=== PATIENT | female | born 1955 | race Hispanic/Latino ===

== ENCOUNTER 2018-11-02 13:01 | Inpatient (IN) | payer MEDICARE, BC ==
--- NOTE | 2018-11-02 13:32 | ED PDOC ---
Arrival/HPI - General Chief Complaint: Chest Pain Time Seen by Provider: 11/02/18 13:05 Historian: Patient - History of Present Illness Narrative History of Present Illness (Text): 11/02/18 13:30 A 63 year old female, whose past medical history includes Crohn's disease, presents to the emergency department complaining of chest heaviness and some shortness of breath for 10 days. States symptoms came suddenly and have been intermittent since 10 days ago. Patient reports describes chest heaviness as someone sitting on her chest, causing her to be unable to get in full breath. Mentions symptoms worse after eating. Patient went to see Dr. Piper for stress test this morning, and afterwards while on her way home, became suddenly lightheaded/dizzy, and decided to come to the ER for evaluation. Patient denies any other complaints at this time. Also, patient mentions having multiple abdominal surgeries in the past. Drinks 2 shots vodkas a day. Return To Factory Clerk: Dr. Piper Past Medical History - Provider Review Nursing Documentation Reviewed: Yes - Cardiac Hx Pacemaker: No - Neurological Hx Paralysis: No - Hematological/Oncological Hx Blood Transfusions: No Hx Blood Transfusion Reaction: No - Musculoskeletal/Rheumatological Hx Musculoskeletal Disorders: No - Gastrointestinal Hx Crohn's Disease: Yes - Psychiatric Hx Emotional Abuse: No Hx Physical Abuse: No Hx Substance Use: No - Anesthesia Hx Anesthesia: Yes Hx Anesthesia Reactions: No Hx Malignant Hyperthermia: No - Suicidal Assessment Feels Threatened In Home Enviroment: No Family/Social History - Physician Review Nursing Documentation Reviewed: Yes Family/Social History: No Known Family HX Smoking Status: Never Smoked Hx Alcohol Use: Yes (SOCIAL) Frequency of alcohol use: Daily Hx Substance Use: No Allergies/Home Meds Allergies/Adverse Reactions: Allergies No Known Allergies Allergy (Verified 07/16/12 12:56) Home Medications: Home Meds Medication Instructions Recorded Confirmed Bifidobacterium Infantis [Align] 4 mg PO DAILY 07/16/12 06/15/14 Dexlansoprazole [Dexilant] 60 mg PO DAILY 07/16/12 06/15/14 Mercaptopurine [6-Mp] 50 mg PO DAILY 07/16/12 06/15/14 Linaclotide [Linzess] 290 mcg PO DAILY 05/25/14 06/15/14 Vitamin A 10,000 iu PO DAILY 06/15/14 06/15/14 Review of Systems - Physician Review All systems were reviewed & negative as marked: Yes - Review of Systems Constitutional: absent: Fevers Respiratory: SOB (some) Cardiovascular: Other (chest heaviness) Neurological: Dizziness (and lightheadedness) Physical Exam - Physical Exam Narrative Physical Exam (Text): Gen: VS reviewed, alert, well developed, well nourished, nontoxic, mild distress. ENT: normal pharynx. Eye: EOMI, PERRL. Neck: no JVD, supple, no adenopathy. CV: regular rate, regular rhythm, no rubs, no murmur, no gallops, S1, S2, pulses equal and strong. Pulm: no distress, clear to auscultation, no wheeze, no rhonchi, breath sounds equal, no rales. Abd: soft, nontender, no guarding, no rebound, no rigidity, normal bowel sounds. Ext: no edema. Skin: good color, no rash, no cyanosis. Psych: responds appropriately to questions, normal affect. Neuro: oriented x 3, CN2-12 intact grossly, motor intact, sensation intact. Medical Decision Making ED Course and Treatment: 11/02/18 13:31 Impression: 63 year old female with chest heaviness and some shortness of breath. Plan: -- Angio Chest CT -- Labs -- Reassess and disposition Progress Notes: 11/02/18 13:07 EKG: Ordered, reviewed, and independently interpreted the EKG. Rate : 60 BPM Rhythm : NSR Interpretation : Normal QRS, normal access, non-specific ST- and T-wave abno rmalities. Comparison : No previous EKG for comparison. 11/02/18 16:[address] molina. patient was seen for recurrent chest pain, planned cardiac cath tomorrow. case was discussed with dr. piper who had seen the patient in the emergency department . - Scribe Statement The provider has reviewed the documentation as recorded by the Diamond Jean Provider Scribe Attestation: All medical record entries made by the Scribblanche were at my direction and personally dictated by me. I have reviewed the chart and agree that the record accurately reflects my personal performance of the history, physical exam, medical decision making, and the department course for this patient. I have also personally directed, reviewed, and agree with the discharge instructions and disposition. Disposition/Present on Arrival - Present on Arrival Any Indicators Present on Arrival: No History of DVT/PE: No History of Uncontrolled Diabetes: No Urinary Catheter: No History of Decub. Ulcer: No History Surgical Site Infection Following: None - Disposition Have Diagnosis and Disposition been Completed?: Yes Diagnosis: Angina at rest Disposition: HOSPITALIZED Disposition Time: 16:54 Patient Plan: Admission Condition: STABLE Discharge Instructions (ExitCare): Chest Pain (ED) Forms: [employer] (Romanian)
[2018-11-02 14:24] LABS: ALB/GLOB RATIO 1.3 (1.1-1.8); ALBUMIN 4.2 g/dL (3.0-4.8); ALT/SGPT 27 U/L (7-56); AST/SGOT 25 U/L (14-36); BASO # 0.02 K/mm3 (0.0-2.0); BASO % 0.3 % (0.0-3.0); BLOOD UREA NITROGEN 13 mg/dL (7-21); CALCIUM 9.5 mg/dL (8.4-10.5); EOS # 0.1 (0.0-0.7); EOS % 1.6 % (1.5-5.0); GFR NON-AFRICAN AMERICAN > 60; GRAN # 3.66 (1.4-6.5); GRAN % 59.8 % (50.0-68.0); HEMOGLOBIN 13.3 g/dL (12.0-16.0); LIPASE 90 U/L (23-300); LYMPH # 1.7 (1.2-3.4); MEAN CELL VOLUME 89.9 fl (80.0-105.0); MEAN CORPUSCULAR HEMOGLOBIN 30.4 pg (25.0-35.0); MEAN CORPUSCULAR HGB CONC 33.8 g/dl (31.0-37.0); MEAN PLATELET VOLUME 10.4 fl (7.0-11.0); MONO # 0.7 (0.1-0.6); MONO % 11.3 % (1.0-6.0); RBC 4.37 10^6/uL (3.5-6.1); RED CELL DISTRIBUTION WIDTH 13.3 % (11.5-14.5); WHITE BLOOD COUNT 6.1 10^3/uL (4.5-11.0)
[2018-11-02 14:34] LABS: INR 1.02; PARTIAL THROMBOPLASTIN TIME 31.9 Seconds (26.9-38.3); PROTHROMBIN TIME 11.3 SECONDS (9.4-12.5)
[2018-11-02 14:36] LABS: TROPONIN I < 0.01 ng/mL
--- NOTE | 2018-11-02 20:15 | CARD ---
APPROVED REPORT Date of service: 11/02/2018 EKG Measurement Heart [id number] <Conclusion> Sinus rhythm with premature atrial complexes Otherwise normal ECG
--- NOTE | 2018-11-02 21:16 | HP ---
DATE OF EXAM: 11/02/2018 HISTORY OF PRESENT ILLNESS: I was called by Dr. Ilir Piper to place this young lady on my service. She is going to go for cardiac cath tomorrow morning. She is a 63-year-old white female who presents with complaining of chest heaviness, shortness of breath for 10 days suddenly came on intermittent on and off, not doing well, feels like somebody is sitting on her chest causing her unable to get a full deep breath. She went to Dr. Piper for stress test this morning, who also became suddenly lightheaded and dizzy, came to the emergency room again and Dr. Piper was going to do a cath tomorrow. She is a 63-year-old white female with past medical history of Crohn disease, now with chest pain, discomfort, pressure. FAMILY HISTORY: No known family history. SOCIAL HISTORY: Never smoked. She drinks two shots daily socially. No substance abuse. ALLERGIES: NO KNOWN DRUG ALLERGIES. MEDICATIONS: She is on align, Dexilant, mercaptopurine, Linzess, and vitamin A. She is going to go for cath early in the morning so hold off on the medications right now. REVIEW OF SYSTEMS: No acute vision or hearing loss. No sore throat. There is chest pain, there is chest heaviness. No shortness of breath or cough. No abdominal pain or nausea, vomiting, constipation, diarrhea. There is dizziness and lightheadedness just not feeling the same. PHYSICAL EXAMINATION: VITAL SIGNS: She has 98.2 temperature, 101/67 blood pressure, 18 respiratory rate, and 100% O2 sats on room air. GENERAL: She is a well developed, comfortable at this time, nontoxic, mild distress. HEENT: Extraocular muscles are intact. Pupils equal and reactive to light. Throat is moist. NECK: Supple. No JVD. No adenopathy. HEART: Regular rate. Normal S1 and S2. LUNGS: Decreased breath sounds. Clear to auscultation. No wheezes, rhonchi, or rales. ABDOMEN: Soft and nontender. Positive bowel sounds. No guarding, rebound or CVA tenderness. EXTREMITIES: No edema. SKIN: Good color. No apparent rashes or ulcers. NEUROLOGIC: Alert and oriented x3. Appropriate affect. Normal mood. Cranial nerves II through XII grossly intact. She can move all four extremities well. LYMPH: Thyroid midline. No palpable appreciable lymphadenopathy. LABORATORY DATA: She had a bunch of tests done. She has a 6.1 white count, 13.3 hemoglobin, 39.3 hematocrit with 301 platelets. She has a 1.02 INR. She has sodium 135, potassium 4.1, BUN 30, creatinine 0.7, GFR is greater than 60, sugar is 99, calcium 9.5, and total bili is 0.3. AST is 25, ALT is 27, alk phos 55. Troponin I is less than 0.01. Total protein 7.5, albumin is 4.2, lipase is 90. Alcohol is less than 10. IMPRESSION AND PLAN: There is an EKG done which showed sinus rhythm. She is going to be seen by Dr. Piper tomorrow for cardiac catheterization. We will restart her medications after the cardiac cath as per Dr. Piper. The patient understands that, she is here for chest pain. She is dictated an catheter male. Lucas Weiss DO MTDD
[2018-11-03 06:09] VITALS: O2SAT 96
[2018-11-03 07:18] LABS: HEMOGLOBIN 14.1 g/dL (12.0-16.0); MEAN CELL VOLUME 90.8 fl (80.0-105.0); MEAN CORPUSCULAR HEMOGLOBIN 30.3 pg (25.0-35.0); MEAN CORPUSCULAR HGB CONC 33.4 g/dl (31.0-37.0); MEAN PLATELET VOLUME 10.2 fl (7.0-11.0); RBC 4.65 10^6/uL (3.5-6.1); RED CELL DISTRIBUTION WIDTH 13.6 % (11.5-14.5); WHITE BLOOD COUNT 4.6 10^3/uL (4.5-11.0)
[2018-11-03 07:19] LABS: ALB/GLOB RATIO 1.3 (1.1-1.8); ALT/SGPT 25 U/L (7-56); AST/SGOT 23 U/L (14-36); BLOOD UREA NITROGEN 16 mg/dL (7-21); CALCIUM 9.4 mg/dL (8.4-10.5); GFR NON-AFRICAN AMERICAN > 60
[2018-11-03] MEDS ORDERED: Iodixanol 320 MG/ML 200 ML BOTTLE IV ONE (08:53)
[2018-11-03] MEDS ORDERED: Lidocaine 2% Inj (20ml) ONE (08:53)
[2018-11-03] MEDS ORDERED: Midazolam 2 MG/2 ML VIAL ONE ×2 (08:54→09:05)
[2018-11-03] MEDS ORDERED: Sodium Chloride 0.9% 1,000 ML IV SCH (09:45)
--- NOTE | 2018-11-03 10:59 | CARDCATH ---
PROCEDURE DATE: 11/03/2018 HISTORY: The patient is a 63-year-old woman who presents with recurrence of angina including progressive angina at rest. This was associated with shortness of breath and marked fatigue. The patient's past medical history includes questionable hypercholesterolemia. There is a family history of CAD. Because of this, the patient was admitted through the emergency room to rule out acute coronary syndrome. Because of her ongoing symptoms, cardiac catheterization was recommended. PROCEDURE: Left heart catheterization with coronary arteriography, left ventriculogram, supra-aortic valvular injection were performed. The right femoral artery was cannulated with 6-Malaysian sheath. There were no complications. I performed moderate sedation which included the presence of an independent trained observer that assisted in monitoring the patient's level of consciousness and physiologic status. After administration of Versed and fentanyl, my intra-service time was 15 minutes. Findings on catheterization included a left ventriculogram which revealed a borderline dilated LV with good LV systolic function. Estimated ejection fraction is 50% to 55%. Supra-aortic valvular injection revealed no aortic insufficiency. Her coronary anatomy revealed a right dominant circulation. The RCA revealed mild intimal irregularities without critical lesions. The left main artery was unremarkable. The LAD and diagonal vessels revealed mild intimal irregularities without critical lesions. The circumflex artery and obtuse marginal branches were free of significant disease. Angio-Seal was used to close the femoral artery site. The patient tolerated the procedure well. In summary, the procedure revealed no critical lesions with mild intimal irregularities in the coronary tree. LV function is borderline dilated with good LV function. No aortic insufficiency. Given these findings, her symptoms cannot be explained by her findings on cardiac catheterization. Given these findings, the patient can be discharged today. We will [place] the patient [place] workup of a noncardiac cause of her chest pain and her fatigue. Ilir Piper MD
--- NOTE | 2018-11-03 12:20 | PN ---
DATE: 11/03/2018 SUBJECTIVE: I saw her in pre-cath, getting ready to go in for a catheterization. She is also having chest heaviness, still on and off throughout the night. I held her regular medications at home for now. She is comfortable, just the chest pressure. OBJECTIVE: VITAL SIGNS: He has a 97.6 temperature, 57 pulse, 89/58 blood pressure, 18 respiratory rate, 96% O2 sat on room air. HEENT: Head is atraumatic, normocephalic. HEART: Regular rate. LUNGS: Decreased breath sounds, but clear. ABDOMEN: Soft. EXTREMITIES: No edema. MEDICATIONS: She is on no medications. LABORATORY DATA: She has a 4.6 white count, 14.1 hemoglobin, 42.2 hematocrit with 289 platelets, 1.02 of the INR. Sodium is 139, potassium 4.1, BUN is 16, creatinine 0.8, GFR is greater 40, 60, sugar is 91,009.4, total bili is 0.4. AST is 23, ALT is 25, alk phos 48. Troponin I is less than 0.01, total protein 7.1, albumin is 4. Lipase is 90. IMPRESSION AND PLAN: While she is going to go for cath this morning. We will see how she does. If she gets the stent placed then she will be kept overnight, if not, then possibly discharged later today. I will put her back on medicines later if we can. Lucas Weiss DO
[2018-11-03 15:53] VITALS: BP 117/65; PULSE 60; RESP 20; TEMP 98.4
== END 2018-11-03 16:36 | disposition home or self-care (01) | DRG 287 ==
LOC: ED 13:01 → ERH 16:54 → INTOOBSV 16:54 → ERH 18:53 → 2RSO 20:35 → OBSVTOIN 11-03 11:29 → UNDODISIN 11-03 16:36
PROVIDERS: ADMIT Family Medicine; ATTEND Family Medicine
PROC: 4A023N7 Measurement of Cardiac Sampling and Pressure, Left Heart, Percutaneous Approach (ICD-10-PCS; principal; 2018-11-03)
PROC: B2151ZZ Fluoroscopy of Left Heart using Low Osmolar Contrast (ICD-10-PCS; 2018-11-03)
PROC: B2111ZZ Fluoroscopy of Multiple Coronary Arteries using Low Osmolar Contrast (ICD-10-PCS; 2018-11-03)
DX: I20.0 Unstable angina (principal); K50.90 Crohn's disease, unspecified, without complications; R06.02 Shortness of breath; R53.83 Other fatigue; R42 Dizziness and giddiness; Z82.49 Family history of ischemic heart disease and other diseases of the circulatory system